=== PATIENT | male | born 1970 | race Caucasian/White ===

== ENCOUNTER 2017-07-16 01:29 | Emergency (ER) | payer OTHER ==
[~2017-07-16] VITALS: Ht 188 cm; Wt 107.7 kg
[~2017-07-16 01:29] MED LIST: ACET-8386 PO
[2017-07-16 01:36] VITALS: BP 150/95
--- NOTE | 2017-07-16 02:03 | NUR ---
PT TAKEN TO CHAIR D
--- NOTE | 2017-07-16 02:10 | NUR ---
Pt presents to ED c/o dizzines, HTN, and hyperglycemia at home x2 days. Pt states he checked his BP which was high, and his BG at home ws 390. Pt states frequency with urnination and increased thirst and denies burning. He has po DMII medications but denies taking them for the past 6 months. A&Ox4. ER MD aware. Continue monitoring.
[2017-07-16 02:35] LABS: BASOPHILS # (AUTO) 0.2 K/uL (0.00-0.22); BASOPHILS % (AUTO) 2.9 % (0.0-2.0); EOSINOPHILS # (AUTO) 0.2 K/uL (0-0.4); EOSINOPHILS % (AUTO) 3.3 % (0.0-4.0); HEMATOCRIT 49.2 % (36-52); HEMOGLOBIN 15.8 g/dL (12.0-18.0); LYMPHOCYTES # (AUTO) 2.1 K/uL (2.0-11.5); LYMPHOCYTES % (AUTO) 29.1 % (20.5-51.1); MEAN CORPUSCULAR HEMOGLOBIN 28 pg (27-31); MEAN CORPUSCULAR HGB CONC 32 g/dL (33-37); MEAN CORPUSCULAR VOLUME 87 fL (80-94); MONOCYTES # (AUTO) 0.5 K/uL (0.8-1.0); MONOCYTES % (AUTO) 6.6 % (1.7-9.3); NEUTROPHILS # (AUTO) 4.1 K/uL (1.8-7.7); NEUTROPHILS % (AUTO) 58.1 % (42.2-75.2); PLATELET COUNT (AUTO) 340 K/uL (140-450); RED BLOOD CELL COUNT(AUTO) 5.64 MIL/uL (4.20-6.10); RED CELL DISTRIBUTION WIDTH 12.4 % (11.6-13.7); WHITE BLOOD COUNT (AUTO) 7.1 K/uL (4.8-10.8)
[2017-07-16 02:48] LABS: ANION GAP 11.7 (8-16); CARBON DIOXIDE 28.3 mmol/L (21-32); CREATININE 0.8 mg/dL (0.7-1.3)
[2017-07-16 02:52] LABS: ALBUMIN 3.5 g/dL (3.4-5.0); TOTAL BILIRUBIN 0.3 mg/dL (0.0-1.0)
[2017-07-16 03:01] LABS: CREATINE KINASE MB 3.6 ng/mL (0-3.6)
[2017-07-16 03:39] VITALS: BP 150/95
--- NOTE | 2017-07-16 03:39 | NUR ---
Patient discharged with v/s stable. Written and verbal after care instructions given and explained. Patient alert, oriented and verbalized understanding of instructions. Ambulatory with steady gait. All questions addressed prior to discharge. ID band removed. Patient advised to follow up with PMD. Rx of metformin given. Patient educated on indication of medication including possible reaction and side effects. Opportunity to ask questions provided and answered.
== END 2017-07-16 03:39 | disposition home or self-care (01) ==
LOC: MED 01:29
DX: R73.9 Hyperglycemia, unspecified (principal); I10 Essential (primary) hypertension; F17.210 Nicotine dependence, cigarettes, uncomplicated; Z79.899 Other long term (current) drug therapy
CPT/HCPCS: 36415; 71045; 80053; 82550; 82553; 84484; 85025; 93005; 99285

== ENCOUNTER 2019-06-11 22:41 | Emergency (ER) | payer SELFPAY ==
[~2019-06-11] VITALS: Ht 188 cm; Wt 108.0 kg
[2019-06-11 22:55] VITALS: BP 139/85
--- NOTE | 2019-06-11 22:59 | NUR ---
PT AMBULATED TO LOBBY
--- NOTE | 2019-06-12 00:01 | NUR ---
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 DENIES HEAD INJURY OR LOC. NO DEFORMITY NOTED. PAIN WITH ROM FOR RIGHT SHOULDER, LEFT ARM, RIGHT ANKLE. SKIN INTACT,COOL,DRY. NO MASSES NOTED. PATIENT AMBULATES WITH LIMP ON RIGHT ANKLE. DENIES SOB/CP. RESP EVEN AND UNLABORED. LUNG SOUNDS CLEAR. AAOX4. CAP REFILL <3. NO PMH NKA
--- NOTE | 2019-06-12 02:40 | NUR ---
PT IN BED LAYING COMFORTABLY. EQUAL CHEST RISE AND FALL.
[2019-06-12 03:40] VITALS: BP 139/85
--- NOTE | 2019-06-12 03:40 | NUR ---
PATIENT LEFT WITHOUT BEING SEEN BY DR. MAKI. NO FURTHER CARE PROVIDED FOR PATIENT.
== END 2019-06-12 03:40 | disposition left against medical advice (07) ==
LOC: MED 22:41
DX: M25.512 Pain in left shoulder (principal); Z53.21 Procedure and treatment not carried out due to patient leaving prior to being seen by health care provider

== ENCOUNTER 2020-01-19 09:28 | Emergency (ER) | payer SELFPAY ==
[~2020-01-19] VITALS: Ht 188 cm; Wt 108.9 kg
[2020-01-19 09:39] VITALS: BP 179/99
--- NOTE | 2020-01-19 10:15 | NUR ---
pt returned from radiology
--- NOTE | 2020-01-19 12:41 | NUR ---
Patient discharged with v/s stable. Written and verbal after care instructions given and explained. Patient alert, oriented and verbalized understanding of instructions. Ambulatory with steady gait. All questions addressed prior to discharge. ID band removed. Patient advised to follow up with PMD. Rx of MOTRIN, NORCO, KEFLEX given. Patient educated on indication of medication including possible reaction and side effects. Opportunity to ask questions provided and answered.
[2020-01-19 12:42] VITALS: BP 179/99
== END 2020-01-19 12:41 | disposition home or self-care (01) ==
LOC: MED 09:28
DX: L03.115 Cellulitis of right lower limb (principal); E11.9 Type 2 diabetes mellitus without complications; I10 Essential (primary) hypertension; Z79.899 Other long term (current) drug therapy
CPT/HCPCS: 73610; 99283

== ENCOUNTER 2020-01-24 11:27 | Emergency (ER) | payer SELFPAY ==
[~2020-01-24] VITALS: Ht 188 cm; Wt 108.9 kg
[2020-01-24 11:32] VITALS: BP 198/106
[2020-01-24 12:25] VITALS: BP 163/85
== END 2020-01-24 12:26 | disposition home or self-care (01) ==
LOC: MED 11:27
DX: S93.601A Unspecified sprain of right foot, initial encounter (principal); I10 Essential (primary) hypertension; F15.10 Other stimulant abuse, uncomplicated; F12.10 Cannabis abuse, uncomplicated; Z79.899 Other long term (current) drug therapy; W57.XXXA Bitten or stung by nonvenomous insect and other nonvenomous arthropods, initial encounter; Y93.89 Activity, other specified; Y92.89 Other specified places as the place of occurrence of the external cause; Y99.8 Other external cause status
CPT/HCPCS: 99283

== ENCOUNTER 2020-03-30 18:52 | Emergency (ER) | payer SELFPAY ==
[~2020-03-30] VITALS: Ht 188 cm; Wt 111.1 kg
[2020-03-30 18:55] VITALS: BP 195/106
--- NOTE | 2020-03-30 19:04 | NUR ---
WAIT AT LOBBY.
--- NOTE | 2020-03-30 19:14 | NUR ---
PT TAKEN TO RAD FROM LOBBY
--- NOTE | 2020-03-30 19:20 | NUR ---
PT RETURN FROM RAD TO ER BED 7
--- NOTE | 2020-03-30 19:30 | NUR ---
ERMD VERBALIZED AWARENESS OF PT'S BP LEVEL. NO ORDERS AT THIS TIME.
--- NOTE | 2020-03-30 19:46 | NUR ---
ermd at bedside.
--- NOTE | 2020-03-30 20:00 | NUR ---
no nursing interventions needed
[2020-03-30 20:15] VITALS: BP 184/106
== END 2020-03-30 20:15 | disposition home or self-care (01) ==
LOC: MED 18:52
DX: S46.911A Strain of unspecified muscle, fascia and tendon at shoulder and upper arm level, right arm, initial encounter (principal); X50.0XXA Overexertion from strenuous movement or load, initial encounter; Y93.89 Activity, other specified; Y92.89 Other specified places as the place of occurrence of the external cause; Y99.8 Other external cause status
CPT/HCPCS: 73030; 99283

== ENCOUNTER 2021-10-26 11:43 | Emergency (ER) | payer OTHER ==
[~2021-10-26] VITALS: Ht 180.3 cm; Wt 83.9 kg
[2021-10-26 11:52] VITALS: BP 174/102
--- NOTE | 2021-10-26 12:35 | NUR ---
MICKY LOPEZ AT BEDSIDE
[2021-10-26] MEDS ORDERED: KETOROLAC 30 MG/ML VIAL IM ONE (12:40)
--- NOTE | 2021-10-26 12:49 | NUR ---
PT PLACED IN RIGHT SHOULDER SLING.
[2021-10-26] MEDS ORDERED: LID5T TP (12:58)
[2021-10-26] MEDS ORDERED: IBUP-2213 PO (12:58)
[2021-10-26] MEDS ORDERED: ACET-8386 PO (12:58)
--- NOTE | 2021-10-26 13:29 | NUR ---
Patient discharged with v/s stable. Written and verbal after care instructions given and explained. Patient verbalized understanding. Ambulatory with steady gait. All questions addressed prior to discharge. Advised to follow up with PMD.
== END 2021-10-26 13:29 | disposition home or self-care (01) ==
LOC: MED 11:43
DX: S46.912A Strain of unspecified muscle, fascia and tendon at shoulder and upper arm level, left arm, initial encounter (principal); I10 Essential (primary) hypertension; Z79.899 Other long term (current) drug therapy; X58.XXXA Exposure to other specified factors, initial encounter; Y93.89 Activity, other specified; Y92.89 Other specified places as the place of occurrence of the external cause; Y99.8 Other external cause status
CPT/HCPCS: 96372; 99283; J1885

== ENCOUNTER 2022-02-21 22:06 | Emergency (ER) | payer OTHER ==
[~2022-02-21] VITALS: Ht 188 cm; Wt 111.1 kg
[~2022-02-21 22:06] MED LIST changes: +IBUP-2213 PO; +LID5T TP
[2022-02-21 22:46] VITALS: BP 164/103
--- NOTE | 2022-02-21 22:56 | NUR ---
Patient taken to bed 6. Patient in bed, A/Ox4, chest rise and fall symmetrical, on monitor.
--- NOTE | 2022-02-21 22:56 | NUR ---
Chandra leal in [facility] - 02/21/22 at 2256 by [email or web address] pATIENT
--- NOTE | 2022-02-21 23:18 | NUR ---
51YR OLD MALE BIB SELF C/O DIZZINESS X1DAY. PT STATES V/N DENIES PAIN SOB OR CP. PT IS A&OX4 RESP EVEN AND UNLABORED . SKIN WARM OR DRY. 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 HOB ELEVATED BED AT LOWEST POSITION NKDA DM HTN
--- NOTE | 2022-02-21 23:28 | NUR ---
Patient being evaluated by physician at bedside.
[2022-02-22] MEDS ORDERED: NACL 0.9% 1,000 ML IV ONE (00:15)
[2022-02-22] MEDS ORDERED: MECLIZINE 25 MG TAB PO ONE (00:15)
[2022-02-22 00:27] LABS: BASOPHILS % (AUTO) 0.4 % (0.0-2.0); EOSINOPHILS # (AUTO) 0.1 K/uL (0-0.4); EOSINOPHILS % (AUTO) 1.1 % (0.0-4.0); HEMATOCRIT 43.5 % (36-52); HEMOGLOBIN 14.8 g/dL (12.0-18.0); LYMPHOCYTES # (AUTO) 1.4 K/uL (2.0-11.5); LYMPHOCYTES % (AUTO) 21.7 % (20.5-51.1); MEAN CORPUSCULAR HEMOGLOBIN 30 pg (27-31); MEAN CORPUSCULAR HGB CONC 34 g/dL (33-37); MEAN CORPUSCULAR VOLUME 87.9 fL (80-94); MONOCYTES # (AUTO) 0.3 K/uL (0.8-1.0); MONOCYTES % (AUTO) 4.2 % (1.7-9.3); NEUTROPHILS # (AUTO) 4.8 K/uL (1.8-7.7); NEUTROPHILS % (AUTO) 72.6 % (42.2-75.2); PLATELET COUNT (AUTO) 352 K/uL (140-450); RED BLOOD CELL COUNT(AUTO) 4.95 MIL/uL (4.20-6.10); RED CELL DISTRIBUTION WIDTH 14.2 % (11.6-13.7); WHITE BLOOD COUNT (AUTO) 6.6 K/uL (4.8-10.8)
--- NOTE | 2022-02-22 00:29 | NUR ---
RAD AT BEDSIDE
[2022-02-22 01:15] LABS: ALBUMIN 3.1 g/dL (3.4-5.0); ANION GAP 11.8 (8-16); ASPARTATE AMINOTRANSFERASE 13 U/L (15-37); CARBON DIOXIDE 27.1 mmol/L (21-32); CHLORIDE 103 mmol/L (98-107); CREATININE 0.7 mg/dL (0.6-1.3); GFR ARICAN-AMERICAN 154 mL/min (>90); GLUCOSE 213 mg/dL (74-106); POTASSIUM 3.9 mmol/L (3.5-5.1); SODIUM SERUM 138 mmol/L (136-145); TOTAL BILIRUBIN 0.4 mg/dL (0.0-1.0); UREA NITROGEN, BLOOD 17 mg/dL (7-18)
--- NOTE | 2022-02-22 02:16 | NUR ---
PT RESTING ASKING TO DC. NS BOLUS INFUSE COMPLETE. PT DENIES PAIN.
[2022-02-22 02:32] VITALS: BP 166/103
--- NOTE | 2022-02-22 02:41 | NUR ---
The patient's care was reviewed and supervised by Donna Vergara RN.
== END 2022-02-22 02:32 | disposition home or self-care (01) ==
LOC: MED 22:06
DX: R42 Dizziness and giddiness (principal); E11.9 Type 2 diabetes mellitus without complications; I10 Essential (primary) hypertension; E78.5 Hyperlipidemia, unspecified; Z79.4 Long term (current) use of insulin; Z79.899 Other long term (current) drug therapy
CPT/HCPCS: 36415; 71045; 80053; 81002; 82948; 84484; 85025; 93005; 96360; 99285; J7030; J8597; Q0092